=== PATIENT | female | born 1990 | race Caucasian/White ===

== ENCOUNTER 2020-06-13 08:00 | Outpatient (CLI) | payer MEDICAID ==
[2020-06-14 03:39] LABS: TRICHOMONAS VAGINALIS DNA NEGATIVE (NEGATIVE)
== END 2020-06-13 23:59 | disposition home or self-care (01) ==
LOC: LAB.R 08:00
PROVIDERS: ATTEND Physician Assistant
DX: Z72.51 High risk heterosexual behavior (principal); R30.0 Dysuria
CPT/HCPCS: 87491; 87591; 87661

== ENCOUNTER 2020-06-15 09:22 | Outpatient (CLI) | payer MEDICAID ==
[2020-06-16 08:01] LABS: HIV AG/AB 4TH GEN NON-REACTIVE (NON-REACTIVE)
== END 2020-06-15 09:23 | disposition home or self-care (01) ==
LOC: LAB.S 09:22
PROVIDERS: ATTEND Physician Assistant
DX: Z72.89 Other problems related to lifestyle (principal); R30.0 Dysuria
CPT/HCPCS: 36415; 81599; 86592; 87389; 87491; 87591; 87661

== ENCOUNTER 2020-08-03 12:00 | Outpatient (CLI) | payer MEDICAID ==
[2020-08-03 18:54] LABS: CANDIDA GROUP DNA NEGATIVE (NEGATIVE); CANDIDA KRUSEI DNA NEGATIVE (NEGATIVE); TRICHOMONAS VAGINALIS DNA NEGATIVE (NEGATIVE)
[2020-08-03 19:28] LABS: TRICHOMONAS VAGINALIS DNA NEGATIVE (NEGATIVE)
== END 2020-08-03 12:01 | disposition home or self-care (01) ==
LOC: LAB.S 12:00
PROVIDERS: ATTEND Physician Assistant Medical
DX: Z72.51 High risk heterosexual behavior (principal); R10.32 Left lower quadrant pain
CPT/HCPCS: 87491; 87591; 87661; 87801

== ENCOUNTER 2021-04-01 21:34 | Emergency (ER) | payer MEDICAID ==
--- NOTE | 2021-04-02 00:13 | ED Physician Documentation ---
PD HPI HEENT - Stated complaint Stated Complaint: LT EAR PX,LT FACE NUMBNESS,HIVES - Chief complaint Chief Complaint: Heent - History obtained from History obtained from: Patient - History of Present Illness Timing - onset: How many days ago (2-3) Timing - duration: Days (2-3) Timing - details: Gradual onset, Still present Location: Left ear (Initially with some pain in the left preauricular and ear area then radiating to the left side of the face. Some gum sensitivity without swelling. She has not developed a rash through that area.), Tooth Associated symptoms: Swollen nodes (preauricular area), Facial swelling (left mandible and lower lip). No: Fever, Congestion, Trismus Similar symptoms before: Has not had sx before Review of Systems Constitutional: denies: Fever, Chills Ears: reports: Ear pain Nose: denies: Rhinorrhea / runny nose, Congestion Throat: denies: Oral lesions / sores (but has today a rash on left mandibule area of face and lower lip left side. None to right.), Sore throat Respiratory: denies: Cough Skin: reports: Rash PD PAST MEDICAL HISTORY - Past Medical History Cardiovascular: None Respiratory: None Neuro: None Endocrine/Autoimmune: None - Present Medications Home Medications: Ambulatory Orders Medication Instructions Recorded Confirmed HYDROcod/ACETAM 5/325 [[place] 5/325] 1 ea PO Q6H PRN #18 tablet 04/02/21 Valacyclovir HCl [Valtrex] 1,000 mg PO TID 5 Days #15 tablet 04/02/21 dexAMETHasone [Decadron] 4 mg PO DAILY #5 tablet 04/02/21 - Allergies Allergies/Adverse Reactions: Allergies Allergy/AdvReac Type Severity Reaction Status Date / Time No Known Drug Allergies Allergy Verified 04/01/21 21:40 PD ED PE NORMAL - Vitals Vital signs reviewed: Yes - General General: Alert and oriented X 3, No acute distress (but states significant facial pain left side. ), Well developed/nourished - HEENT HEENT: Ears normal (the canal and TM are normal. Left preauricular area with ly mph node and tenderness. ), Pharynx benign, Other (left lower lip and mandibular part of left face with clustered fine vesicular rash areas that are tender. appear c/w shingles. Demacated midline on chin. No rash to right. ) - Neck Neck: Supple, no meningeal sign - Cardiac Cardiac: RRR, No murmur - Respiratory Respiratory: Clear bilaterally Results - Vitals Vitals: Vital Signs - 24 hr 04/01/21 04/02/21 21:40 01:13 Temperature 36.5 C Heart Rate 100 82 Respiratory 16 14 Rate Blood Pressure 145/78 H 135/69 H O2 Saturation 99 100 PD MEDICAL DECISION MAKING - ED course Complexity details: considered differential (symptoms and exam c/w shingles in lower trigeminal distribution. ), d/w patient Departure - Departure Disposition: 01 Home, Self Care Clinical Impression: Facial pain Shingles Qualifiers: Herpes zoster complications: without complications Qualified Code(s): B02.9 - Zoster without complications Condition: Stable Record reviewed to determine appropriate education?: Yes Instructions: ED Shingles Prescriptions: dexAMETHasone [Decadron] 4 mg PO DAILY #5 tablet HYDROcod/ACETAM 5/325 [[place] 5/325] 1 ea PO Q6H PRN #18 tablet PRN Reason: Pain Valacyclovir HCl [Valtrex] 1,000 mg PO TID 5 Days #15 tablet Comments: Your pain and rash are from shingles. This can get treated with antivirals and anti-inflammatories. I prescribed valacyclovir 3 times a day for 5 days and Decadron steroid daily for 5 days. Tylenol every 4-6 hours if needed for pain or hydrocodone if needed for worse pain. This may get slightly worse in the next day or 2 before tapering and then resolve over hopefully just 2 or 3 weeks. With the medications of a even go away faster. Discharge Date/Time: 04/02/21 01:13
[2021-04-02] MEDS ORDERED: HYDROcod/ACET 5/325 Prepack 4 PO STA (00:40)
[2021-04-02] MEDS ORDERED: ACETAMINOPHEN 325 MG TABLET PO STA (00:40)
[2021-04-02] MEDS ORDERED: CHERRY SYRUP 10 ML UDC PO ONE (00:40)
[2021-04-02] MEDS ORDERED: DEXAMETHASONE 10 MG/ML VIAL PO STA (00:40)
[2021-04-02] MEDS ORDERED: ACYCLOVIR 200 MG CAPSULE PO STA (00:40)
[2021-04-02 01:20] VITALS: BP 135/69
== END 2021-04-02 01:13 | disposition home or self-care (01) ==
LOC: ED 21:34
DX: B02.9 Zoster without complications (principal)
CPT/HCPCS: 99283; 99284; A9270

== ENCOUNTER 2022-05-26 09:24 | Outpatient (CLI) | payer MEDICAID ==
--- NOTE | 2022-05-26 13:47 | MRI Report ---
PROCEDURE: WRIST WO - RT INDICATIONS: RIGHT WRIST TENDONITIS TECHNIQUE: Noncontrast coronal proton density fast spin echo and T2 fast spin echo with fat saturation; coronal 3-D gradient echo, axial T1 spin echo and T2 fast spin echo with fat saturation, sagittal T1 spin ech o through the wrist. COMPARISON: Right wrist radiographs 03/04/2022. FINDINGS: Image quality: Excellent. Bones and cartilage: The carpal bones are normally aligned. No bone marrow contusions or fractures. No evidence for avascular necrosis. Carpal ligaments: The scapholunate and lunotriquetral ligaments appear intact. On sagittal images, the pisohamate ligament appears intact. Triangular fibrocartilage complex: The triangular fibrocartilage appears intact. Tendons and soft tissues: The carpal tunnel structures appear normal, including the median nerve. T he ulnar nerve appears normal within Guyon's canal. Mild extensor carpi ulnaris tendinosis and tenos ynovitis. Trace tenosynovitis of the extensor carpi radialis brevis and longus tendons. All six exten sor tendon compartments demonstrate normal morphology, without pathologic tendon sheath fluid. No so ft tissue ganglion cysts. IMPRESSION: 1.Mild extensor carpi ulnaris tendinosis and tenosynovitis. 2.Trace tenosynovitis of the extensor carpi radialis brevis and longus tendons. 3.No acute trabecular bone injury. No significant arthritic changes. No ligamentous injury is seen. Reviewed by: Dhruv Marcelino MD on 05/26/2022 1:46 PM PDT Approved by: Dhruv Marcelino MD on 05/26/2022 1:46 PM PDT Station ID: [id number]
== END 2022-05-26 09:25 | disposition home or self-care (01) ==
LOC: DI 09:24
PROVIDERS: ATTEND Registered Nurse
DX: M65.9 Synovitis and tenosynovitis, unspecified (principal)

== ENCOUNTER 2022-11-17 08:00 | Outpatient (CLI) | payer MEDICAID ==
[2022-11-17 20:59] LABS: CHLAMYDIA TRACHOMATIS DNA NEGATIVE (NEGATIVE); NEISSERIA GONORRHOEAE DNA NEGATIVE (NEGATIVE)
[2022-11-17 21:06] LABS: BACTERIAL VAGINOSIS DNA NEGATIVE (NEGATIVE); CANDIDA GLABRATA DNA NEGATIVE (NEGATIVE); CANDIDA GROUP DNA NEGATIVE (NEGATIVE); CANDIDA KRUSEI DNA NEGATIVE (NEGATIVE); TRICHOMONAS VAGINALIS DNA NEGATIVE (NEGATIVE)
== END 2022-11-17 23:59 | disposition home or self-care (01) ==
LOC: LAB.WC 08:00
PROVIDERS: ATTEND Nurse Practitioner
DX: Z11.3 Encounter for screening for infections with a predominantly sexual mode of transmission (principal)
CPT/HCPCS: 81514; 87491; 87591; 87661

== ENCOUNTER 2023-03-16 08:00 | Outpatient (CLI) | payer MEDICAID ==
[2023-03-16 20:22] LABS: BILIRUBIN,URINE NEGATIVE (NEGATIVE); GLUCOSE, URINE (UA) NEGATIVE (NEGATIVE); KETONES,URINE (UA) NEGATIVE (NEGATIVE); LEUKOCYTE ESTERASE, URINE LARGE (NEGATIVE); NITRITE,URINE NEGATIVE (NEGATIVE); OCCULT BLOOD,URINE LARGE (NEGATIVE); PH,URINE 5.5 PH (5.0-7.5); PROTEIN,URINE NEGATIVE (NEGATIVE); UROBILINOGEN,URINE 0.2 (NORMAL) E.U./dL (NORMAL)
[2023-03-16 21:00] LABS: BACTERIA,URINE Many /HPF (None Seen); CLARITY,URINE HAZY (CLEAR); RBC,URINE TNTC /HPF (0-5); SQUAMOUS EPITHELIAL CELL,UR FEW Squamous (<= Few); WBC,URINE >25 /HPF (0-5)
== END 2023-03-16 23:59 | disposition home or self-care (01) ==
LOC: LAB 08:00
PROVIDERS: ATTEND Emergency Medicine
DX: R30.0 Dysuria (principal)
CPT/HCPCS: 81001; 87086; 87181